=== PATIENT | male | born 1965 | race Caucasian/White ===

== ENCOUNTER → 2017-07-19 | Day surgery (SDC) | payer BC ==
[~2017-07-19] MED LIST: ACETAMINOPHEN 1000 MG/100 ML 100 ML IV ONE; BUPIVACAINE/EPINEPHRINE 0.25% 50 ML VIAL ONE; IOHEXOL 180 MG/ML 20 ML VIAL (for RAD DIAG) ONE; KETOROLAC TROMETHAMINE 30 MG/ML (IVP) VIAL IV PUSH ONE; LACTATED RINGER'S 1000 ML INJ 1,000 ML ONE; MEPERIDINE HCL 25 MG/ML VIAL ONE; MIDAZOLAM HCL 2 MG/2 ML VIAL ONE; MORPHINE SULFATE 4 MG/ML INJ ONE; ONDANSETRON HCL 4 MG/2 ML VIAL IV PUSH ONE; PROPOFOL 200 MG/20 ML AMP IV ONE; SODIUM CHLORIDE 0.9% 20 ML VIAL ONE; SYNT25TA PO; ceFAZolin 2 GM PREMIX 50 ML ONE; metroNIDAZOLE 500 MG INJ 100 ML IV ONE
--- NOTE | 2017-07-19 09:13 | TN ---
cc: IRVIN HAMLIN M.D., ARUN M.D. DATE OF SURGERY 07/19/2017 PREOPERATIVE DIAGNOSES Calculous cholecystitis, elevated total bilirubin, mildly elevated amylase. POSTOPERATIVE DIAGNOSES Calculous cholecystitis, elevated total bilirubin, mildly elevated amylase. PROCEDURE Laparoscopic cholecystectomy with intraoperative cholangiography. SURGEON Dr. Irvin Hamlin ANESTHESIA General INDICATIONS This is a 52-year-old gentleman who has developed recurrent episodes of fatty food intolerance, right upper quadrant pain and has findings consistent with calculous cholecystitis. Preoperative laboratory values demonstrate a total bilirubin of 2.2 with an amylase of 122, both of mildly elevated. Alkaline phosphatase, AST and ALT were normal. INTRAOPERATIVE FINDINGS Gallbladder with inflammatory adhesions consistent with calculous cholecystitis. Intraoperative cholangiogram demonstrating no evidence of filling defects with normal emptying of contrast into the duodenum and proximal ducts filling normally without filling defect. ESTIMATED BLOOD LOSS Less than 5 mL. DESCRIPTION OF PROCEDURE IN DETAIL The patient was identified as Ilia Currie, taken to the operating room, placed in the supine position. Sequential compression devices were placed on the bilateral lower extremities. Following induction of adequate general endotracheal anesthesia, the patient's abdomen was prepped and draped in the usual sterile fashion with Betadine. A time-out procedure was performed. Following completion of the time-out procedure to everyone's satisfaction within the room, 0.25% Marcaine with epinephrine was placed at each incision site. A previous infraumbilical small transverse incision was opened with a scalpel and dissection continued posteriorly to the level of the infraumbilical midline fascia. This was incised with a scalpel and entry in the peritoneal cavity was facilitated with a hemostat. The applied medical balloon Zheng trocars placed in the peritoneal cavity and its balloon inflated to an insufflation to a level of 15 mmHg ensued. The patient was placed in a reverse Trendelenburg position turned to the left and two upper abdominal 5 mm trocars were placed into the peritoneal cavity under direct laparoscopic view after incision in the skin with a scalpel. The gallbladders was immediately identified, was retracted anteriorly and superiorly. Inflammatory adhesions of the omentum were identified. These were taken down from the undersurface of the gallbladder using the harmonic scalpel. The gallbladder was then removed from the gallbladder fossa in a dome down technique using the harmonic scalpel. The cystic artery was divided with a harmonic scalpel allowing for the cystic duct to be isolated from surrounding tissues. It was ligated at its juncture with the gallbladder with a 0 Vicryl Endoloop. Through a separate stab incision in the right upper quadrant after infiltration with local anesthetic, the introducer for the cholangiogram catheter was placed into the peritoneal cavity under direct laparoscopic view. The applied medical angiogram catheter was placed into the peritoneal cavity through the introducer. The cystic duct just beyond the 0 Vicryl ligature was hemisected and the applied medical cholangiogram catheter was placed into the cystic duct and its disk initiated and saline flush through the cholangiogram catheter without evidence of obstruction of flow. Intraoperative cholangiogram was then performed under direct fluoroscopic visualization using full strength contrast. This demonstrated easy emptying of the contrast into the duodenum through a tapered distal common bile duct. There was no evidence of filling defect. The patient was placed in slight Trendelenburg position. The proximal hepatic ducts were filled with contrast without evidence of filling defect. The patient was returned to the normal position for gallbladder surgery and the cholangiogram catheter was removed from the cystic duct. The distal duct was ligated beyond the hemisected area with a 0 Vicryl Endoloop. The duct was divided with a harmonic scalpel. The gallbladder placed into an Endo retriever bag and removed through the infraumbilical fascial port incision site and passed off field for pathologic evaluation. The right upper quadrant was examined. There was no evidence of bleeding or bilious drainage. The cystic duct ligature remained intact. The cystic arterial stump was hemostatic. Remaining local anesthetic was placed in the right upper quadrant. A brief survey of additional intra-abdominal contents demonstrated no abnormalities seen. The patient was status post bilateral inguinal hernia repairs and mesh and tacks could be seen through the peritoneum. Trocars were removed under direct visualization. The cholangiogram catheter introducer was removed as well. There was no evidence of bleeding from the sites. The abdomen was actively desufflated through the infraumbilical port which was then removed. The infraumbilical fascial defects were closed with running and interrupted 0 Vicryl sutures. The port sites were irrigated copiously with saline. Skin incisions were approximated with 4-0 Monocryl subcuticular sutures, Mastisol and half inch brown Steri-Strips. The patient tolerated the procedure without apparent complication. Sponge, needle and instrument counts were correct at the end of the case. MD BETHANIE Devi/STEPHANIE /8:47 AM /9:00 AM
--- NOTE | 2017-07-19 09:14 | RADRPT ---
EXAM DATE/TIME: 07/19/2017 07:13 [facility] COMPARISON: No previous studies available for comparison. INDICATIONS : Evaluation for filling defects. FLUORO TIME: 1 minutes IMAGE COUNT: 3 MEDICAL HISTORY : None. SURGICAL HISTORY : None. ENCOUNTER: Initial ACUITY: 1 day PAIN SCORE: Non-responsive. LOCATION: Right abdomen. PROCEDURE: CHOLANGIOGRAM, OPERATIVE 1. Intraoperative cholangiogram. In the operating room, the cystic duct stump was injected and radiographs obtained. The examination demonstrates no filling defect within the common bile duct. Contrast opacifies the se cond portion the duodenum. Contrast also refluxes into the central intrahepatic bile ducts. The intra hepatic bile ducts are not dilated. CONCLUSION: No filling defects are visualized in the common bile duct. Darian Leo MD on July 19, 2017 at 9:10 Board Certified Radiologist. This report was verified electronically.
== END | disposition home or self-care (01) ==
LOC: ESDC 06:56
PROVIDERS: ATTEND Surgery Trauma Surgery
DX: K81.0 Acute cholecystitis (principal)
CPT/HCPCS: 00790; 47563; 74300; 88304; J0131; J0690; J1885; J2175; J2250; J2270; J2405; J3010; J7120; Q9965